=== PATIENT | female | born 1965 | race Caucasian/White ===

== ENCOUNTER 2021-12-05 16:44 | Emergency (ER) | payer OTHER ==
[2021-12-05] MEDS ORDERED: Sodium Chloride 0.9% 10 ML Syringe FLUSH PRN (16:58)
[2021-12-05] MEDS ORDERED: Aspirin 81 MG Tab.Chew PO ONE (17:20)
[2021-12-05] MEDS ORDERED: Alum Hydrox/Mag Hydrox/Simeth 30 ML, Lidocaine 2% 15 ML PO ONE ×2 (17:20)
[2021-12-05] MEDS ORDERED: Nitroglycerin 0.4 MG Tab.SL SL ONE ×2 (18:04→18:31)
[2021-12-05 19:16] VITALS: BP 107/69; PULSE 58
== END 2021-12-05 19:15 | disposition home or self-care (01) ==
LOC: JD.ED 16:44
DX: R07.89 Other chest pain (principal); E78.00 Pure hypercholesterolemia, unspecified; I10 Essential (primary) hypertension; Z88.0 Allergy status to penicillin; Z88.8 Allergy status to other drugs, medicaments and biological substances
CPT/HCPCS: 36415; 71046; 80053; 83735; 83880; 84484; 85007; 85027; 85379; 85610; 85730; 93005; 99285; A9270; J3490